=== PATIENT | female | born 2000 | race Caucasian/White ===

== ENCOUNTER 2021-02-10 12:21 | Emergency (ER) | payer MEDICARE ==
[2021-02-10 12:55] LABS: RED BLOOD COUNT 4.86 M/UL (4.00-5.10); WHITE BLOOD COUNT 6.7 K/UL (4.5-11.0)
[2021-02-10 13:21] LABS: BUN/CREATININE RATIO 13 (0-10)
[2021-02-10] MEDS ORDERED: PROTONIX40 MG PO (15:40)
== END 2021-02-10 15:58 | disposition home or self-care (01) ==
LOC: ER1 12:21
PROVIDERS: Emergency Medicine
DX: R10.9 Unspecified abdominal pain (principal)
CPT/HCPCS: 80053; 81001; 83690; 84703; 85025; 96374; 96375; 99284; J2270; J2405; J7030; Q9967